=== PATIENT | female | born 1980 | race Caucasian/White ===

== ENCOUNTER 2018-06-08 19:41 | Observation (INO) | payer SELFPAY ==
--- NOTE | 2018-06-08 20:27 | EDM.PDOC ---
ED HPI GENERAL MEDICAL PROBLEM - General Chief Complaint: RN EMERGENCY ROOM Problem Stated Complaint: PT HAS HEAVY BLEEDING Time Seen by Provider: 06/08/18 19:48 Source of Information: Reports: Patient History Limitations: Reports: No Limitations - History of Present Illness INITIAL COMMENTS - FREE TEXT/NARRATIVE: HISTORY AND PHYSICAL: History of present illness: Patient is a 37-year-old female who presents to the ED today with concern of 5 week history of continuous vaginal bleeding. Patient states over the past 2 weeks she has begun to pass large amounts of clots. Patient states she main appointment with [facility] in order to get this evaluated by her appointment is not until June. Patient states that over the past week she's begun to feel dizzy and lightheaded. Patient states when she bends over she feels like she is going to pass out. Patient denies fever, chills, chest pain, shortness of breath, or cough. Denies headache, neck stiff ness, change in vision, syncope. Denies nausea, vomiting, abdominal pain, diarrhea, constipation, or dysuria. Has not noted any blood in urine or stool. Patient has been eating and drinking appropriately. Patient denies any health history. Review of systems: As per history of present illness and below otherwise all systems reviewed and negative. Past medical history: As per history of present illness and as reviewed below otherwise noncontributory. Surgical history: As per history of present illness and as reviewed below otherwise noncontributory. Social history: See social history for further information Family history: As per history of present illness and as reviewed below otherwise noncontributory. Physical exam: General: Patient is alert, oriented, and in no acute distress. Patient sitting comfortably on exam table. HEENT: Atraumatic, normocephalic, pupils equal and reactive bilaterally, negative for conjunctival pallor or scleral icterus, mucous membranes moist, TMs normal bilaterally, throat clear, neck supple, nontender, trachea midline. No drooling or trismus noted. No meningeal signs. No hot potato voice noted. Lungs: Clear to auscultation, breath sounds equal bilaterally, chest nontender. Heart: S1S2, regular rate and rhythm without overt murmur Abdomen: Soft, nondistended, nontender. Negative for masses or hepatosplenomegaly. Negative for costovertebral tenderness. Pelvis: Stable nontender. Genitourinary: External genitalia grossly unremarkable. There is a moderate amount of bright red blood in the vaginal vault. There is a blood clot in the cervical os but the os is closed. Negative cervical motion tenderness. Rectal: Deferred. Skin: Intact, warm, dry. No lesions or rashes noted. Extremities: Atraumatic, negative for cords or calf pain. Neurovascular unremarkable. Neuro: Awake, alert, oriented. Cranial nerves II through XII unremarkable. Cerebellum unremarkable. Motor and sensory unremarkable throughout. Exam nonfocal. Notes: Dr. Levine was verbally involved in patients care. Dr. Estrada was consult on patient and will admit to observation. Voices understanding and is agreeable to plan of care. Denies any further questions or concerns at this time. Diagnostics: CBC, CMP, UA, blood type, type and cross, type and screen, transvaginal ultrasound, hCG Quant, gonorrhea and Chlamydia, affirm Therapeutics: Saline, Blood transfusion Impression: Symptomatic anemia Dysfunctional uterine bleeding Bacterial Vaginosis Plan: 1. Admit to observation to Dr. Estrada Definitive disposition and diagnosis as appropriate pending reevaluation and review of above. abdomen Pain Score (Numeric/FACES): 2 - Related Data Allergies Allergy/AdvReac Type Severity Reaction Status Date / Time No Known Allergies Allergy Verified 06/08/18 19:47 Home Meds: Home Meds . [No Known Home Meds] 06/08/18 [History] Past Medical History - Past Health History Medical/Surgical History: Denies Medical/Surgical History Social & Family History - Family History Family Medical History: Noncontributory - Tobacco Use Smoking Status *Q: Current Every Day Smoker Years of Tobacco use: 20 Packs/Tins Daily: 0.5 - Caffeine Use Caffeine Use: Reports: Coffee, Energy Drinks, Soda, Tea - Recreational Drug Use Recreational Drug Use: No ED ROS GENERAL - Review of Systems Review Of Systems: ROS reveals no pertinent complaints other than HPI. ED EXAM, GENERAL - Physical Exam Exam: See Below (See dictation) Course - Vital Signs Last Recorded V/S: Last Vital Signs Temp 36.3 C 06/08/18 19:47 Pulse 96 06/08/18 21:30 Resp 18 06/08/18 21:30 BP 119/54 L 06/08/18 21:30 Pulse Ox 100 06/08/18 21:30 - Orders/Labs/Meds Orders: Active Orders 24 hr Category Date Time Status Admission Status [Patient Status] [ADT] Stat ADT 06/08/18 21:32 Active Verify Patient Consent Obtain [RC] ASDIRECTED Care 06/08/18 21:40 Active Transvaginal Non OB [US] Stat Exams 06/08/18 20:17 Taken CHLAMYDIA AND GONORRHEA BY TMA Stat Lab 06/08/18 20:40 Received RED BLOOD CELLS LP [BBK] Stat Lab 06/08/18 20:21 Received TYPE AND SCREEN [BBK] Stat Lab 06/08/18 20:21 Received Sodium Chloride 0.9% [Normal Saline] 1,000 ml Med 06/08/18 21:36 Active IV STAT Transfuse Red Blood Cells [COMM] Stat Oth 06/08/18 21:27 Ordered Medication Orders Sodium Chloride (Normal Saline) 1,000 mls @ 999 mls/hr IV STAT ONE Stop: 06/08/18 22:36 Labs: Laboratory Tests 06/08/18 06/08/18 06/08/18 Range/Units 19:25 20:21 20:21 WBC 5.54 (4.0-11.0) K/uL RBC 2.36 L (4.30-5.90) M/uL Hgb 7.3 L (12.0-16.0) g/dL Hct 23.1 L (36.0-46.0) % MCV 97.9 (80.0-98.0) fL MCH 30.9 (27.0-32.0) pg MCHC 31.6 (31.0-37.0) g/dL RDW Std Deviation 52.1 (28.0-62.0) fl RDW Coeff of Ivan 15 (11.0-15.0) % Plt Count 256 (150-400) K/uL MPV 9.90 (7.40-12.00) fL Neut % (Auto) 54.6 (48.0-80.0) % Lymph % (Auto) 35.6 (16.0-40.0) % [place] % (Auto) 5.8 (0.0-15.0) % Eos % (Auto) 3.8 (0.0-7.0) % Baso % (Auto) 0.2 (0.0-1.5) % Neut # (Auto) 3.0 (1.4-5.7) K/uL Lymph # (Auto) 2.0 (0.6-2.4) K/uL [place] # (Auto) 0.3 (0.0-0.8) K/uL Eos # (Auto) 0.2 (0.0-0.7) K/uL Baso # (Auto) 0.0 (0.0-0.1) K/uL Nucleated RBC % 0.0 /100WBC Nucleated RBCs # 0 K/uL HCG, Quant < 1.0 mIU/mL Urine Color ORANGE Urine Appearance CLOUDY Urine pH 7.0 (5.0-8.0) Ur Specific [place] 1.015 (1.001-1.035) Urine Protein 100 H (NEGATIVE) mg/dL Urine Glucose (UA) NEGATIVE (NEGATIVE) mg/dL Urine Ketones NEGATIVE (NEGATIVE) mg/dL Urine Occult Blood LARGE H (NEGATIVE) Urine Nitrite NEGATIVE (NEGATIVE) Urine Bilirubin NEGATIVE (NEGATIVE) Urine Urobilinogen 2.0 H (<2.0) EU/dL Ur Leukocyte Esterase NEGATIVE (NEGATIVE) Urine RBC TOO NUMEROUS TO CT H (0-2/HPF) Urine WBC 0-2 (0-5/HPF) Ur Epithelial Cells FEW (NONE-FEW) Urine Bacteria RARE (NEGATIVE) Urinalysis Comment Mimi species DNA (NEGATIVE) Gardnerella DNA Probe (NEGATIVE) Trichomonas DNA Probe (NEGATIVE) Blood Type 06/08/18 06/08/18 Range/Units 20:21 20:40 WBC (4.0-11.0) K/uL RBC (4.30-5.90) M/uL Hgb (12.0-16.0) g/dL Hct (36.0-46.0) % MCV (80.0-98.0) fL MCH (27.0-32.0) pg MCHC (31.0-37.0) g/dL RDW Std Deviation (28.0-62.0) fl RDW Coeff of Ivan (11.0-15.0) % Plt Count (150-400) K/uL MPV (7.40-12.00) fL Neut % (Auto) (48.0-80.0) % Lymph % (Auto) (16.0-40.0) % [place] % (Auto) (0.0-15.0) % Eos % (Auto) (0.0-7.0) % Baso % (Auto) (0.0-1.5) % Neut # (Auto) (1.4-5.7) K/uL Lymph # (Auto) (0.6-2.4) K/uL [place] # (Auto) (0.0-0.8) K/uL Eos # (Auto) (0.0-0.7) K/uL Baso # (Auto) (0.0-0.1) K/uL Nucleated RBC % /100WBC Nucleated RBCs # K/uL HCG, Quant mIU/mL Urine Color Urine Appearance Urine pH (5.0-8.0) Ur Specific [place] (1.001-1.035) Urine Protein (NEGATIVE) mg/dL Urine Glucose (UA) (NEGATIVE) mg/dL Urine Ketones (NEGATIVE) mg/dL Urine Occult Blood (NEGATIVE) Urine Nitrite (NEGATIVE) Urine Bilirubin (NEGATIVE) Urine Urobilinogen (<2.0) EU/dL Ur Leukocyte Esterase (NEGATIVE) Urine RBC (0-2/HPF) Urine WBC (0-5/HPF) Ur Epithelial Cells (NONE-FEW) Urine Bacteria (NEGATIVE) Urinalysis Comment Mimi species DNA NEGATIVE (NEGATIVE) Gard[place]rella DNA Probe POSITIVE H (NEGATIVE) Trichomonas DNA Probe NEGATIVE (NEGATIVE) Blood Type O POSITIVE Meds: Medications Generic Name Dose Route Start Last Admin Trade Name Freq PRN Reason Stop Dose Admin Sodium Chloride 1,000 mls @ 999 mls/hr 06/08/18 21:36 Normal Saline IV 06/08/18 22:36 STAT ONE Departure - Departure Time of Disposition: 21:57 Disposition: Refer to Observation Clinical Impression: Symptomatic anemia, Dysfunctional uterine bleeding, Bacterial vaginosis - Discharge Information Referrals: PCP,None [Primary Care Provider] - Forms: ED Department Discharge - My Orders Last 24 Hours: My Active Orders 06/08/18 20:17 Transvaginal Non OB [US] Stat 06/08/18 20:21 RED BLOOD CELLS LP [BBK] Stat TYPE AND SCREEN [BBK] Stat 06/08/18 20:40 CHLAMYDIA AND GONORRHEA BY TMA Stat 06/08/18 21:27 Transfuse Red Blood Cells [COMM] Stat 06/08/18 21:32 Admission Status [Patient Status] [ADT] Stat 06/08/18 21:36 Sodium Chloride 0.9% [Normal Saline] 1,000 ml IV STAT 06/08/18 21:40 Verify Patient Consent Obtain [RC] ASDIRECTED - Assessment/Plan Last 24 Hours: My Active Orders 06/08/18 20:17 Transvaginal Non OB [US] Stat 06/08/18 20:21 RED BLOOD CELLS LP [BBK] Stat TYPE AND SCREEN [BBK] Stat 06/08/18 20:40 CHLAMYDIA AND GONORRHEA BY TMA Stat 06/08/18 21:27 Transfuse Red Blood Cells [COMM] Stat 06/08/18 21:32 Admission Status [Patient Status] [ADT] Stat 06/08/18 21:36 Sodium Chloride 0.9% [Normal Saline] 1,000 ml IV STAT 06/08/18 21:40 Verify Patient Consent Obtain [RC] ASDIRECTED
[2018-06-08] MEDS ORDERED: Sodium Chloride 0.9% 1,000 ML IV ONE (21:36)
[2018-06-08] MEDS ORDERED: metroNIDAZOLE 250 MG Tab PO ONE (21:58)
[2018-06-08] MEDS ORDERED: Acetaminophen 325 MG Tab PO PRN (22:18)
[2018-06-08] MEDS ORDERED: Ondansetron 4 MG Tab PO PRN (22:19)
[2018-06-08] MEDS ORDERED: oxyCODONE 5 MG Tab PO PRN (22:19)
[2018-06-08] MEDS ORDERED: Sodium Chloride 0.9% 2.5 ML Syringe FLUSH PRN (22:20)
[2018-06-08] MEDS ORDERED: Sodium Chloride 0.9% 10 ML Syringe FLUSH PRN (22:20)
--- NOTE | 2018-06-08 22:33 | US ---
INDICATION: Vaginal bleeding. Bleeding with clots for 5 weeks. TECHNIQUE: Ultrasound pelvis transabdominal and transvaginal for better assessment or to better visualize the endometrium. Real-time sonographic images with spectral and color Doppler imaging of the ovaries were obtained. COMPARISON: No comparison pelvic ultrasound. FINDINGS: Uterus: 10.6 x 7.0 x 8.1 cm. Estimated uterine volume 316 mL. Fibroid uterus. Largest uterine fibroid measures 5.0 cm. Smaller uterine fibroid measures 1.5 cm, located between the endometrium and dominant right fundal intramural fibroid. Endometrium: Transvaginal imaging was performed to better evaluate the endometrium. 18 mm in thickness. Endometrium poorly delineated due to mass effect from large uterine fibroid. Right ovary: Right ovary not identified. Left ovary: Is 2.0 x 1.6 x 2.6 cm. No ovarian or adnexal masses. Normal arterial and venous blood flow. Cul-de-sac: No significant free fluid. Indeterminate fluid or possible cystic focus in the right adnexa, measuring 2.4 x 2.7 by 4.5 cm. IMPRESSION: 1. Heterogeneous uterus with at least 2 uterine fibroids identified near the right uterine fundus. Dominant anterior fundal intramural uterine fibroid measures 5.0 cm in maximal dimension with smaller fibroid 1.5 cm. 2. Indeterminate cystic focus in the right adnexa with nonvisualization of right ovary. Differential includes possible peritoneal inclusion cyst or a right hydrosalpinx. 3. Normal left ovary. 4. Endometrial thickness borderline thickened, measuring 18 mm. Endometrium poorly delineated due to mass effect from the adjacent uterine fibroids. Non-emergent pelvic MRI may be helpful for characterization of uterine fibroids, endometrium, and right adnexal cystic focus. Dictated by Claude Hernandez MD @ 06/08/2018 10:31:51 PM Dictated by: Claude Hernandez MD @ 06/08/2018 22:32:04 (Electronically Signed)
[2018-06-08] MEDS: Nicotine 14 MG/24 Hr Patch TRDERM SCH (22:57)
--- NOTE | 2018-06-09 07:28 | PCM.HP ---
H&P History of Present Illness - General Date of Service: 06/09/18 Admit Problem/Dx: Admission Diagnosis/Problem Admission Diagnosis/Problem Anemia, dysfunctional uterine bleeding, large fibroids Source of Information: Patient History Limitations: Reports: No Limitations - History of Present Illness Initial Comments - Free Text/Narative: The patient is a 37-year-old lady who had presented to the emergency department with a complaint of dizziness, lightheadedness and heavy vaginal bleeding. The patient is not . Patient reports that she has had very heavy menstrual cycle with clots. Patient also reports that she has been having to use up to 2 pads per hour. She says that she has had her menstrual cycle for approximately 5 weeks. She also has severe lower abdominal cramps. The patient has been in good health otherwise and she does not take any medication chronically other than supplements. She does not use control. Onset of Symptoms: Reports: Gradual Duration of Symptoms: Reports: Week(s): Location: Reports: Generalized Severity: Mild Improves with: Reports: None Worsens with: Reports: None Context: Reports: Other (Metromenorrhagia) Associated Symptoms: Reports: No Other Symptoms abdomen Pain Score (Numeric/FACES): 2 - Related Data Allergies/Adverse Reactions: Allergies Allergy/AdvReac Type Severity Reaction Status Date / Time No Known Allergies Allergy Verified 06/08/18 19:47 Home Medications: Home Meds . [No Known Home Meds] 06/08/18 [History] Past Medical History - Past Health History Medical/Surgical History: Denies Medical/Surgical History HEENT History: Reports: None Cardiovascular History: Reports: None Respiratory History: Reports: None Gastrointestinal History: Reports: None Genitourinary History: Reports: None [facility] History: Reports: Dysfunctional Uterine Bleeding, Fibroids Musculoskeletal History: Reports: None Neurological History: Reports: None Psychiatric History: Reports: None Endocrine/Metabolic History: Reports: None Hematologic History: Reports: None Immunologic History: Reports: None Oncologic (Cancer) History: Reports: None Dermatologic History: Reports: None - Infectious Disease History Infectious Disease History: Reports: None Social & Family History - Family History Family Medical History: Noncontributory - Tobacco Use Smoking Status *Q: Current Every Day Smoker Years of Tobacco use: 20 Packs/Tins Daily: 0.5 Used Tobacco, but Quit: No Second Hand Smoke Exposure: Yes - Caffeine Use Caffeine Use: Reports: Coffee - Alcohol Use Alcohol Use History: Yes Alcohol Use Frequency: Rarely, Not Used in Over 6 Months - Recreational Drug Use Recreational Drug Use: No - Living Situation & Occupation Living situation: Reports: , with Family Occupation: Employed H&P Review of Systems - Review of Systems: Review Of Systems: See Below General: Reports: Weakness, Fatigue HEENT: Reports: No Symptoms Pulmonary: Reports: No Symptoms Cardiovascular: Reports: No Symptoms Gastrointestinal: Reports: No Symptoms Genitourinary: Reports: Abnormal Menses, Dysmenorrhea Musculoskeletal: Reports: No Symptoms Skin: Reports: No Symptoms Psychiatric: Reports: No Symptoms Neurological: Reports: Dizziness Hematologic/Lymphatic: Reports: No Symptoms Immunologic: Reports: No Symptoms Exam - Exam Exam: See Below - Vital Signs Vital Signs: Last Vital Signs Temp 36.4 C 06/09/18 03:00 Pulse 101 H 06/09/18 03:00 Resp 16 06/09/18 03:00 BP 99/55 L 06/09/18 03:00 Pulse Ox 99 06/09/18 03:00 Weight: 64.773 kg - Exam Quality Assessment: Supplemental Oxygen General: Alert, Oriented, 4 HEENT: Conjunctiva Clear, EACs Clear, EOMI, Hearing Intact, Mucosa Moist & [place] , Nares Patent, PERRLA Neck: Supple, Trachea Midline, 2 Lungs: Clear to Auscultation, Normal Respiratory Effort Cardiovascular: Regular Rate, Regular Rhythm GI/Abdominal Exam: Normal Bowel Sounds, Soft, Non-Tender, No Distention (Female) Exam: Deferred Rectal (Female) Exam: Deferred Back Exam: Normal Inspection, Full Range of Motion, NT Extremities: Normal Inspection, Normal Range of Motion, Non-Tender, No Pedal Edema Skin: Warm, Dry, Intact Neurological: Cranial Nerves Intact Neuro Extensive - Mental Status: Alert, Oriented x3, Normal Mood/Affect Neuro Extensive - Motor, Sensory, Reflexes: CN II-XII Intact, Normal Gait Psychiatric: Alert, Normal Affect, Normal Mood - Patient Data Lab Results Last 24 hrs: Laboratory Results - last 24 hr 06/08/18 06/08/18 06/08/18 Range/Units 19:25 20:21 20:21 WBC 5.54 (4.0-11.0) K/uL RBC 2.36 L (4.30-5.90) M/uL Hgb 7.3 L (12.0-16.0) g/dL Hct 23.1 L (36.0-46.0) % MCV 97.9 (80.0-98.0) fL MCH 30.9 (27.0-32.0) pg MCHC 31.6 (31.0-37.0) g/dL RDW Std Deviation 52.1 (28.0-62.0) fl RDW Coeff of Ivan 15 (11.0-15.0) % Plt Count 256 (150-400) K/uL MPV 9.90 (7.40-12.00) fL Neut % (Auto) 54.6 (48.0-80.0) % Lymph % (Auto) 35.6 (16.0-40.0) % [place] % (Auto) 5.8 (0.0-15.0) % Eos % (Auto) 3.8 (0.0-7.0) % Baso % (Auto) 0.2 (0.0-1.5) % Neut # (Auto) 3.0 (1.4-5.7) K/uL Lymph # (Auto) 2.0 (0.6-2.4) K/uL [place] # (Auto) 0.3 (0.0-0.8) K/uL Eos # (Auto) 0.2 (0.0-0.7) K/uL Baso # (Auto) 0.0 (0.0-0.1) K/uL Nucleated RBC % 0.0 /100WBC Nucleated RBCs # 0 K/uL Iron (50-175) ug/dL TIBC (250-450) ug/dL % Saturation (20-55) % Ferritin (8-252) ng/mL HCG, Quant < 1.0 mIU/mL Urine Color ORANGE Urine Appearance CLOUDY Urine pH 7.0 (5.0-8.0) Ur Specific [place] 1.015 (1.001-1.035) Urine Protein 100 H (NEGATIVE) mg/dL Urine Glucose (UA) NEGATIVE (NEGATIVE) mg/dL Urine Ketones NEGATIVE (NEGATIVE) mg/dL Urine Occult Blood LARGE H (NEGATIVE) Urine Nitrite NEGATIVE (NEGATIVE) Urine Bilirubin NEGATIVE (NEGATIVE) Urine Urobilinogen 2.0 H (<2.0) EU/dL Ur Leukocyte Esterase NEGATIVE (NEGATIVE) Urine RBC TOO NUMEROUS TO CT H (0-2/HPF) Urine WBC 0-2 (0-5/HPF) Ur Epithelial Cells FEW (NONE-FEW) Urine Bacteria RARE (NEGATIVE) Urinalysis Comment Mimi species DNA (NEGATIVE) Gardnerella DNA Probe (NEGATIVE) Trichomonas DNA Probe (NEGATIVE) Blood Type Antibody Screen Crossmatch 06/08/18 06/08/18 06/08/18 Range/Units 20:21 20:21 20:21 WBC (4.0-11.0) K/uL RBC (4.30-5.90) M/uL Hgb (12.0-16.0) g/dL Hct (36.0-46.0) % MCV (80.0-98.0) fL MCH (27.0-32.0) pg MCHC (31.0-37.0) g/dL RDW Std Deviation (28.0-62.0) fl RDW Coeff of Ivan (11.0-15.0) % Plt Count (150-400) K/uL MPV (7.40-12.00) fL Neut % (Auto) (48.0-80.0) % Lymph % (Auto) (16.0-40.0) % [place] % (Auto) (0.0-15.0) % Eos % (Auto) (0.0-7.0) % Baso % (Auto) (0.0-1.5) % Neut # (Auto) (1.4-5.7) K/uL Lymph # (Auto) (0.6-2.4) K/uL [place] # (Auto) (0.0-0.8) K/uL Eos # (Auto) (0.0-0.7) K/uL Baso # (Auto) (0.0-0.1) K/uL Nucleated RBC % /100WBC Nucleated RBCs # K/uL Iron 101 (50-175) ug/dL TIBC 298 (250-450) ug/dL % Saturation 33.89 (20-55) % Ferritin 32 (8-252) ng/mL HCG, Quant mIU/mL Urine Color Urine Appearance Urine pH (5.0-8.0) Ur Specific [place] (1.001-1.035) Urine Protein (NEGATIVE) mg/dL Urine Glucose (UA) (NEGATIVE) mg/dL Urine Ketones (NEGATIVE) mg/dL Urine Occult Blood (NEGATIVE) Urine Nitrite (NEGATIVE) Urine Bilirubin (NEGATIVE) Urine Urobilinogen (<2.0) EU/dL Ur Leukocyte Esterase (NEGATIVE) Urine RBC (0-2/HPF) Urine WBC (0-5/HPF) Ur Epithelial Cells (NONE-FEW) Urine Bacteria (NEGATIVE) Urinalysis Comment Mimi species DNA (NEGATIVE) [place] DNA Probe (NEGATIVE) Trichomonas DNA Probe (NEGATIVE) Blood Type Cancelled O POSITIVE Antibody Screen NEGATIVE Crossmatch See Detail 06/08/18 Range/Units 20:40 WBC (4.0-11.0) K/uL RBC (4.30-5.90) M/uL Hgb (12.0-16.0) g/dL Hct (36.0-46.0) % MCV (80.0-98.0) fL MCH (27.0-32.0) pg MCHC (31.0-37.0) g/dL RDW Std Deviation (28.0-62.0) fl RDW Coeff of Ivan (11.0-15.0) % Plt Count (150-400) K/uL MPV (7.40-12.00) fL Neut % (Auto) (48.0-80.0) % Lymph % (Auto) (16.0-40.0) % [place] % (Auto) (0.0-15.0) % Eos % (Auto) (0.0-7.0) % Baso % (Auto) (0.0-1.5) % Neut # (Auto) (1.4-5.7) K/uL Lymph # (Auto) (0.6-2.4) K/uL [place] # (Auto) (0.0-0.8) K/uL Eos # (Auto) (0.0-0.7) K/uL Baso # (Auto) (0.0-0.1) K/uL Nucleated RBC % /100WBC Nucleated RBCs # K/uL Iron (50-175) ug/dL TIBC (250-450) ug/dL % Saturation (20-55) % Ferritin (8-252) ng/mL HCG, Quant mIU/mL Urine Color Urine Appearance Urine pH (5.0-8.0) Ur Specific [place] (1.001-1.035) Urine Protein (NEGATIVE) mg/dL Urine Glucose (UA) (NEGATIVE) mg/dL Urine Ketones (NEGATIVE) mg/dL Urine Occult Blood (NEGATIVE) Urine Nitrite (NEGATIVE) Urine Bilirubin (NEGATIVE) Urine Urobilinogen (<2.0) EU/dL Ur Leukocyte Esterase (NEGATIVE) Urine RBC (0-2/HPF) Urine WBC (0-5/HPF) Ur Epithelial Cells (NONE-FEW) Urine Bacteria (NEGATIVE) Urinalysis Comment Mimi species DNA NEGATIVE (NEGATIVE) [place] DNA Probe POSITIVE H (NEGATIVE) Trichomonas DNA Probe NEGATIVE (NEGATIVE) Blood Type Antibody Screen Crossmatch Result Diagrams: 06/08/18 20:21 *Q Meaningful Use (ADM) - VTE *Q VTE Pharmacological Contraindications *Q: Risk of Bleeding - Problem List (1) Symptomatic anemia SNOMED Code(s): 437887760 ICD Code: D64.9 - ANEMIA, UNSPECIFIED Status: Chronic Priority: High Current Visit: Yes (2) Dysfunctional uterine bleeding SNOMED Code(s): 38808819 ICD Code: N93.8 - OTHER SPECIFIED ABNORMAL UTERINE AND VAGINAL BLEEDING Status: Acute Priority: High Current Visit: Yes (3) Uterine fibroid SNOMED Code(s): 17012396 ICD Code: D25.9 - LEIOMYOMA OF UTERUS, UNSPECIFIED Status: Acute Priority : High Current Visit: Yes Qualifiers: Uterine leiomyoma location: intramural Qualified Code(s): D25.1 - Intramural leiomyoma of uterus (4) Tobacco abuse SNOMED Code(s): 013175831 ICD Code: Z72.0 - TOBACCO USE Status: Chronic Priority: Medium Current Visit: Yes Problem List Initiated/Reviewed/Updated: Yes Orders Last 24hrs: Active Orders 24 hr Category Date Time Status Admission Status [Patient Status] [ADT] Stat ADT 06/08/18 21:32 Active Antiembolic Devices [RC] PER UNIT ROUTINE Care 06/09/18 06:57 Active Communication Order [RC] PRN Care 06/09/18 01:54 Active Notify Provider Consults [RC] ASDIRECTED Care 06/09/18 06:57 Active Oxygen Therapy [RC] PRN Care 06/09/18 06:55 Active Up ad Mamta [RC] ASDIRECTED Care 06/09/18 06:55 Active VTE/DVT Education [RC] PER UNIT ROUTINE Care 06/09/18 06:55 Active Verify Patient Consent Obtain [RC] ASDIRECTED Care 06/08/18 21:40 Active Vital Signs [RC] Q4H Care 06/09/18 06:55 Active Consult to Physician [CONS] Routine Cons 06/09/18 06:55 Active Regular Diet [DIET] Diet 06/09/18 Breakfast Active BASIC METABOLIC PANEL,BMP [CHEM] AM Lab 06/10/18 05:11 Ordered CBC WITH AUTO DIFF [HEME] AM Lab 06/10/18 05:11 Ordered CHLAMYDIA AND GONORRHEA BY TMA Stat Lab 06/08/18 20:40 Received RED BLOOD CELLS LP [BBK] Stat Lab 06/08/18 20:21 Results TYPE AND SCREEN [BBK] Stat Lab 06/08/18 20:21 Results Acetaminophen [Tylenol] Med 06/08/18 22:18 Active 650 mg PO Q4H PRN Nicotine [Habitrol] Med 06/08/18 23:00 Active 14 mg TRDERM DAILY Ondansetron [Zofran] Med 06/08/18 22:19 Active 4 mg PO Q6H PRN Sodium Chloride 0.9% [Saline Flush] Med 06/08/18 22:20 Active 10 ml FLUSH ASDIRECTED PRN Sodium Chloride 0.9% [Saline Flush] Med 06/08/18 22:20 Active 2.5 ml FLUSH ASDIRECTED PRN oxyCODONE Med 06/08/18 22:19 Active 5 mg PO Q4H PRN Convert IV to Saline Lock [OM.PC] Stat Oth 06/08/18 22:20 Ordered Sequential Compression Device [OM.PC] Per Unit Routine Oth 06/09/18 06:56 Ordered Transfuse Red Blood Cells [COMM] Stat Oth 06/08/18 21:27 Ordered VTE Pharmacological Contraindications [AST] Per Unit Oth 06/09/18 06:55 Ordered Routine Resuscitation Status Routine Resus Stat 06/09/18 06:55 Ordered Medication Orders Acetaminophen (Tylenol) 650 mg PO Q4H PRN PRN Reason: Pain (mild 1-3) Nicotine (Habitrol) 14 mg TRDERM DAILY SUSIE Last Admin: 06/08/18 22:57 Dose: 14 mg Ondansetron HCl (Zofran) 4 mg PO Q6H PRN PRN Reason: Nausea/Vomiting Oxycodone HCl (Oxycodone) 5 mg PO Q4H PRN PRN Reason: Pain (moderate 4-6) Sodium Chloride (Saline Flush) 10 ml FLUSH ASDIRECTED PRN PRN Reason: Keep Vein Open Sodium Chloride (Saline Flush) 2.5 ml FLUSH ASDIRECTED PRN PRN Reason: Keep Vein Open Assessment/Plan Comment:: The patient is an otherwise healthy 37-year-old lady who was admitted primarily secondary to anemia due to dysfunctional uterine bleeding. [facility] [employer] physician, Dr. Oneill, was consulted and had recommended follow-up in 1 month as an outpatient with him. He had also recommended that the patient have Ortho Tri- Cyclen control pills to help with her uterine bleeding. The patient had been transfused one unit of packed red blood cells. Current CBC is pending. The patient will also have DVT prophylaxis with the use of SCDs. The patient will have her regular diet as tolerated. She is also been encouraged to ambulate. The patient should be appropriate for discharge later today.
[2018-06-09] MEDS: Nicotine 14 MG/24 Hr Patch TRDERM SCH (10:10)
--- NOTE | 2018-06-10 05:10 | CONS ---
DATE OF CONSULTATION: DATE OF : 1980 PRIMARY CARE PHYSICIAN: None PCP REFERRING PHYSICIAN: Sammy Estrada DO For the purpose of this consultation, I had [id number] interview and brief physical examination of this patient and I also reviewed her lab work and I also reviewed her admission note and her pelvic ultrasound. BRIEF HISTORY: She is 37 years old. She is para 2-0-0-2, one is delivered by vaginal , one is by section. She has increasing menometrorrhagia for the last year or so until it is her last period. It lasted for 5 weeks. The patient was seen in the emergency room and diagnosed to be having excessive vaginal bleeding with anemia. She was admitted to the hospital and she was managed by the hospitalist and she required a blood transfusion. She has no past medical illness. She is status post one section and one vaginal . She does not take any medication on a regular basis and she is not using any method of control. PHYSICAL EXAMINATION: On brief abdominal examination, it shows that the uterus could be felt very easily above the symphysis pubis and it was felt to be about 15 to 16-week size with a possibility of leiomyoma. The patient stated that she had a pelvic exam in the emergency room and she declined a pelvic examination now. ASSESSMENT: Based on the ultrasound and history and brief abdominal examination, she has a large uterus with multiple fibroids, which is most likely the cause of her bleeding. The patient is 37. She prefers that she finished with her family. My recommendation for her to have a hysterectomy to stop the bleeding and it most likely could be done laparoscopically. I discussed that with her in detail. The patient elected to have a conservative management rather than a surgical treatment. I told the patient her alternative is to have to be on control pills and we will ask the hospitalist doctor to prescribe the control pills for her and she could have a followup examination in the office in 1 to 2 weeks for followup on her blood count and her bleeding issue. I discussed this consultation with Dr. Estrada. Thank you for consulting us. JABARI VILLAR /[id number]
== END 2018-06-09 12:00 | disposition home or self-care (01) ==
LOC: MW.ED 19:41 → MW.MS 21:32 → MW.ED 22:25
PROVIDERS: ADMIT Internal Medicine; ATTEND Internal Medicine
DX: D25.1 Intramural leiomyoma of uterus (principal); D64.9 Anemia, unspecified; N93.8 Other specified abnormal uterine and vaginal bleeding; F17.200 Nicotine dependence, unspecified, uncomplicated
CPT/HCPCS: 36415; 76830; 81001; 82728; 83550; 84702; 85025; 87480; 87491; 87510; 87591; 87660; 99285; A9270; J7040; P9016; 99284

== ENCOUNTER 2018-07-05 09:09 | Emergency (ER) | payer BC ==
[2018-07-05] MEDS ORDERED: Ketorolac 60 MG/2 ML SDV IM ONE (09:25)
--- NOTE | 2018-07-05 09:31 | EDM.PDOC ---
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 Stated Complaint: VAGINAL BLEEDING Time Seen by Provider: 07/05/18 09:30 Source of Information: Reports: Patient - History of Present Illness INITIAL COMMENTS - FREE TEXT/NARRATIVE: HISTORY AND PHYSICAL: History of present illness: [Patient with history of uterine fibroids followed by gynecology hysterectomy was suggested however patient declined alternatively was placed on control help regulate bleeding she's had met heavy menstrual flow over the last 2-4 days No fever nausea vomiting chills sweats no chest pain shortness breath headache dizziness palpitation no bowel or urine symptoms ] Review of systems: As per history of present illness and below otherwise all systems reviewed and negative. Past medical history: As per history of present illness and as reviewed below otherwise noncontributory. Surgical history: As per history of present illness and as reviewed below otherwise noncontributory. Social history: No reported history of drug or alcohol abuse. Family history: As per history of present illness and as reviewed below otherwise noncontributory. Physical exam: HEENT: Atraumatic, normocephalic, pupils reactive, negative for conjunctival pallor or scleral icterus, mucous membranes moist, throat clear, neck supple, nontender, trachea midline. Lungs: Clear to auscultation, breath sounds equal bilaterally, chest nontender. Heart: S1S2, regular, negative for clicks, rubs, or JVD. Abdomen: Soft, nondistended, nontender. Negative for masses or hepatosplenomegaly. Negative for costovertebral tenderness. Pelvis: Stable nontender. Genitourinary: Deferred. Rectal: Deferred. Extremities: Atraumatic, negative for cords or calf pain. Neurovascular unremarkable. Neuro: Awake, alert, oriented. Cranial nerves II through XII unremarkable. Cerebellum unremarkable. Motor and sensory unremarkable throughout. Exam nonfocal. Diagnostics: [CBC CMP UA hCG ] Therapeutics: [Continue BCP Follow-up with gynecology ] Discussed with Dr. song recommends follow-up patient has elected to follow-up with Dr. Oneill Impression: [History of uterine fibroid Heavy menses]/abnormal uterine bleeding Ultrasound evidence of hyperplasia Definitive disposition and diagnosis as appropriate pending reevaluation and review of above. 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 History: Reports: Dysfunctional Uterine Bleeding, Fibroids Musculoskeletal History: Reports: None Neurological History: Reports: None Psychiatric History: Reports: None Endocrine/Metabolic History: Reports: None Hematologic History: Reports: None Immunologic History: Reports: None Oncologic (Cancer) History: Reports: None Dermatologic History: Reports: None - Infectious Disease History Infectious Disease History: Reports: None - Past Surgical History Head Surgeries/Procedures: Reports: None Social & Family History - Family History Family Medical History: Noncontributory - Tobacco Use Smoking Status *Q: Current Every Day Smoker Years of Tobacco use: 25 Packs/Tins Daily: 0.5 - Caffeine Use Caffeine Use: Reports: Coffee - Recreational Drug Use Recreational Drug Use: No - Living Situation & Occupation Living situation: Reports: , with Family Occupation: Employed ED ROS GENERAL - Review of Systems Review Of Systems: See Below ED EXAM, GENERAL - Physical Exam Exam: See Below Course - Vital Signs Last Recorded V/S: Last Vital Signs Temp 96.9 F 07/05/18 09:17 Pulse 100 07/05/18 09:17 Resp 18 07/05/18 09:17 BP 117/63 07/05/18 09:17 Pulse Ox 100 07/05/18 09:17 - Orders/Labs/Meds Orders: Active Orders 24 hr Category Date Time Status EKG 12 Lead [EKG Documentation Completion] [RC] STAT Care 07/05/18 11:42 Active Labs: Laboratory Tests 07/05/18 07/05/18 07/05/18 Range/Units 09:30 09:30 09:41 WBC 11.43 H (4.0-11.0) K/uL RBC 4.38 (4.30-5.90) M/uL Hgb 13.1 (12.0-16.0) g/dL Hct 43.3 (36.0-46.0) % MCV 98.9 H (80.0-98.0) fL MCH 29.9 (27.0-32.0) pg MCHC 30.3 L (31.0-37.0) g/dL RDW Std Deviation 53.4 (28.0-62.0) fl RDW Coeff of Ivan 15 (11.0-15.0) % Plt Count 211 (150-400) K/uL MPV 10.90 (7.40-12.00) fL Neut % (Auto) 77.2 (48.0-80.0) % Lymph % (Auto) 15.3 L (16.0-40.0) % Shannon % (Auto) 5.9 (0.0-15.0) % Eos % (Auto) 1.4 (0.0-7.0) % Baso % (Auto) 0.2 (0.0-1.5) % Neut # (Auto) 8.8 H (1.4-5.7) K/uL Lymph # (Auto) 1.8 (0.6-2.4) K/uL Shannon # (Auto) 0.7 (0.0-0.8) K/uL Eos # (Auto) 0.2 (0.0-0.7) K/uL Baso # (Auto) 0.0 (0.0-0.1) K/uL Nucleated RBC % 0.0 /100WBC Nucleated RBCs # 0 K/uL Sodium (136-145) mmol/L Potassium (3.5-5.1) mmol/L Chloride (98-107) mmol/L Carbon Dioxide (21.0-32.0) mmol/L BUN (7.0-18.0) mg/dL Creatinine (0.6-1.0) mg/dL Est Cr Clr Drug Dosing mL/min Estimated GFR (MDRD) ml/min Glucose (74-106) mg/dL Calcium (8.5-10.1) mg/dL Total Bilirubin (0.2-1.0) mg/dL AST (15-37) IU/L ALT (14-63) IU/L Alkaline Phosphatase (46-116) U/L Total Protein (6.4-8.2) g/dL Albumin (3.4-5.0) g/dL Globulin (2.6-4.0) g/dL Albumin/Globulin Ratio (0.9-1.6) Urine Color YELLOW Urine Appearance CLEAR Urine pH 5.0 (5.0-8.0) Ur Specific [place] >= 1.030 (1.001-1.035) Urine Protein NEGATIVE (NEGATIVE) mg/dL Urine Glucose (UA) NEGATIVE (NEGATIVE) mg/dL Urine Ketones TRACE H (NEGATIVE) mg/dL Urine Occult Blood LARGE H (NEGATIVE) Urine Nitrite NEGATIVE (NEGATIVE) Urine Bilirubin SMALL H (NEGATIVE) Urine Urobilinogen 1.0 (<2.0) EU/dL Ur Leukocyte Esterase NEGATIVE (NEGATIVE) Urine RBC 8-10 (0-2/HPF) Urine WBC 1-3 (0-5/HPF) Ur Epithelial Cells OCCASIONAL (NONE-FEW) Amorphous Sediment FEW (NEGATIVE) Urine Bacteria FEW (NEGATIVE) Urine Mucus MODERATE (NONE-MOD) Urine HCG, Qual NEGATIVE (NEGATIVE) 07/05/18 Range/Units 09:41 WBC (4.0-11.0) K/uL RBC (4.30-5.90) M/uL Hgb (12.0-16.0) g/dL Hct (36.0-46.0) % MCV (80.0-98.0) fL MCH (27.0-32.0) pg MCHC (31.0-37.0) g/dL RDW Std Deviation (28.0-62.0) fl RDW Coeff of Ivan (11.0-15.0) % Plt Count (150-400) K/uL MPV (7.40-12.00) fL Neut % (Auto) (48.0-80.0) % Lymph % (Auto) (16.0-40.0) % Shannon % (Auto) (0.0-15.0) % Eos % (Auto) (0.0-7.0) % Baso % (Auto) (0.0-1.5) % Neut # (Auto) (1.4-5.7) K/uL Lymph # (Auto) (0.6-2.4) K/uL Shannon # (Auto) (0.0-0.8) K/uL Eos # (Auto) (0.0-0.7) K/uL Baso # (Auto) (0.0-0.1) K/uL Nucleated RBC % /100WBC Nucleated RBCs # K/uL Sodium 143 (136-145) mmol/L Potassium 4.1 (3.5-5.1) mmol/L Chloride 108 H (98-107) mmol/L Carbon Dioxide 26.6 (21.0-32.0) mmol/L BUN 10 (7.0-18.0) mg/dL Creatinine 0.7 (0.6-1.0) mg/dL Est Cr Clr Drug Dosing 85.34 mL/min Estimated GFR (MDRD) > 60.0 ml/min Glucose 97 (74-106) mg/dL Calcium 10.0 (8.5-10.1) mg/dL Total Bilirubin 0.3 (0.2-1.0) mg/dL AST 14 L (15-37) IU/L ALT 18 (14-63) IU/L Alkaline Phosphatase 85 (46-116) U/L Total Protein 7.5 (6.4-8.2) g/dL Albumin 3.5 (3.4-5.0) g/dL Globulin 4.0 (2.6-4.0) g/dL Albumin/Globulin Ratio 0.9 (0.9-1.6) Urine Color Urine Appearance Urine pH (5.0-8.0) Ur Specific [place] (1.001-1.035) Urine Protein (NEGATIVE) mg/dL Urine Glucose (UA) (NEGATIVE) mg/dL Urine Ketones (NEGATIVE) mg/dL Urine Occult Blood (NEGATIVE) Urine Nitrite (NEGATIVE) Urine Bilirubin (NEGATIVE) Urine Urobilinogen (<2.0) EU/dL Ur Leukocyte Esterase (NEGATIVE) Urine RBC (0-2/HPF) Urine WBC (0-5/HPF) Ur Epithelial Cells (NONE-FEW) Amorphous Sediment (NEGATIVE) Urine Bacteria (NEGATIVE) Urine Mucus (NONE-MOD) Urine HCG, Qual (NEGATIVE) Meds: Medications Discontinued Medications Generic Name Dose Route Start Last Admin Trade Name Freq PRN Reason Stop Dose Admin Iopamidol 75 ml 07/05/18 12:13 07/05/18 12:13 Isovue Multipack-370 (76%) IVPUSH 07/05/18 12:14 75 ml ONETIME STA Administration Ketorolac Tromethamine 60 mg 07/05/18 09:25 07/05/18 09:35 Toradol IM 07/05/18 09:26 60 mg ONETIME ONE Administration Departure - Departure Time of Disposition: 14:03 Disposition: Home, Self-Care 01 Condition: Good Clinical Impression: Endometrial hyperplasia, Dysfunctional uterine bleeding Uterine fibroid Qualifiers: Uterine leiomyoma location: intramural Qualified Code(s): D25.1 - Intramural leiomyoma of uterus - Discharge Information Referrals: PCP,Unknown [Primary Care Provider] - Forms: ED Department Discharge Additional Instructions: ER referral for Dr. Otero gynecology for Saturday or early in the week for consideration of endometrial biopsy and/or hysterectomy Continue current management Return to the emergency room if symptoms persist or worsen or if new concerning symptoms develop [facility] [address] [address] The following information is given to patients seen in the emergency department who are being discharged to home. This information is to outline your options for follow-up care. We provide all patients seen in our emergency department with a follow-up referral. The need for follow-up, as well as the timing and circumstances, are variable depending upon the specifics of your emergency department visit. If you don't have a primary care physician on staff, we will provide you with a referral. We always advise you to contact your personal physician following an emergency department visit to inform them of the circumstance of the visit and for follow-up with them and/or the need for any referrals to a consulting specialist. The emergency department will also refer you to a specialist when appropriate. This referral assures that you have the opportunity for follow-up care with a specialist. All of these measure are taken in an effort to provide you with optimal care, which includes your follow-up. Under all circumstances we always encourage you to contact your private physician who remains a resource for coordinating your care. When calling for follow-up care, please make the office aware that this follow-up is from your recent emergency room visit. If for any reason you are refused follow-up, please contact the [facility] emergency department at and asked to speak to the emergency department charge nurse. - My Orders Last 24 Hours: My Active Orders 07/05/18 11:42 EKG 12 Lead [EKG Documentation Completion] [RC] STAT - Assessment/Plan Last 24 Hours: My Active Orders 07/05/18 11:42 EKG 12 Lead [EKG Documentation Completion] [RC] STAT
[2018-07-05 10:20] LABS: CHLORIDE,CL 108 mmol/L (98-107); SODIUM,NA 143 mmol/L (136-145)
--- NOTE | 2018-07-05 11:15 | CT ---
INDICATION: Vaginal bleeding for a month. Fibroids. Patient had blood transfusion last month for vaginal bleeding. TECHNIQUE: CT of abdomen and pelvis performed without oral or IV contrast. COMPARISON: Pelvic ultrasound 06/08/2018. FINDINGS: Tiny stone in the left lower kidney. Metallic foreign body in the perineal region. Small uncalcified nodular opacity in the left lower lobe posteriorly measures 7-8 mm on image 3. Tiny subpleural nodule in the left lower lobe. Uncalcified nodule right lung base anteriorly in the right lower lobe posterior to the major fissure measures 6-7 mm. These bilateral pulmonary nodules are indeterminate and given the size of the largest of these it would be worthwhile obtaining a complete CT of the chest to ensure there are not additional pulmonary nodules. Mild atelectasis and ground-glass opacity in the lungs. The anterior mid and lower right breast has a large amount of very dense soft tissue opacity which may be related to prominent parenchymal change but is fairly nonspecific. Moderate increased low-density and the central uterus which is consistent with prominence of the endometrial stripe and thickening of the endometrial stripe. This is not accurately assessed on noncontrast CT but portions of the visualized endometrium could measure up to 1.9 cm. Suggest correlation with repeat pelvic ultrasound could more accurately assess endometrial stripe. Endometrial stripe did measures similarly on the prior ultrasound. The uterus is moderately enlarged and pelvis and contains a soft tissue mass measuring up to 6 cm posteriorly correlating with the largest fibroid described on the recent ultrasound. Cystic structure with calcification within in it posteriorly in the left lower pelvis in the left periaortic and uterine region could be an ovarian cyst or small amount of fluid in the pelvis. All the above findings would be better assessed with repeat pelvic ultrasound. The appendix is normal. Remainder negative. IMPRESSION: 1. Endometrial stripe appears prominent by CT but is not well visualized without IV contrast. Endometrial stripe could measure up to 1.9 cm in transverse dimension. Given the history of persistent vaginal bleeding, recommend repeat pelvic ultrasound to further evaluate. Endometrial stripe was similarly thickened on May 2018 ultrasound. 2. Moderately enlarged bulbous uterus consistent with myomatous change with at least 1 large fibroid seen posteriorly by CT today. 3. Fluid collection or cystic density in the left pelvis in the periuterine region could be an ovarian cystic lesion or small amount of free fluid. 4. Tiny stone left kidney. 5. Indeterminate sub centimeter bilateral uncalcified pulmonary nodules in the lung bases measure up to 7-8 mm. Given the size of the largest nodule would suggest complete CT of the chest to evaluate for etiology of these nodules and to assess for additional pulmonary nodules. The size of the largest nodule would also warrant follow-up CT in the future per Fleischner society guidelines. Please note that all CT scans at this facility use dose modulation, iterative reconstruction, and/or weight-based dosing when appropriate to reduce radiation dose to as low as reasonably achievable. Dictated by Donavan Eugene MD @ Jul 05 2018 11:02AM Signed by Dr. Donavan Eugene @ Jul 05 2018 11:14AM
[2018-07-05] MEDS ORDERED: Iopamidol 755 MG/ML 500 ML Multipack Bottle IVPUSH STA (12:13)
--- NOTE | 2018-07-05 13:30 | CT ---
INDICATION: Pulmonary nodules on CT earlier today. Vaginal bleeding for one month. TECHNIQUE: CT chest performed after IV injection of 75 mL of Isovue-370. COMPARISON: CT abdomen and pelvis today. FINDINGS: Mild ground-glass opacity/mosaic pattern in the lungs likely inflammatory. Multiple scattered bilateral pulmonary nodules. The largest of these measures 7-8 mm and is uncalcified in the left lower lobe and is unchanged from CT earlier today. Small nodule along the left major fissure on image 32 of series 202. Few additional small subpleural nodules in the left lower lobe. Two adjacent small uncalcified nodules are seen in the left upper lobe on image 23. Small nodule in the left upper lobe/lingula on image 36 measures 4-5 mm. 5 mm nodule in the right middle lobe on image 47. 6-7 mm nodule in the right lower lobe anteriorly along the major fissure on image [address] earlier today. 6 mm nodule in the right upper lobe posteromedially on image 27. Few additional small nodules in the right lung. All these nodules are indeterminate and uncalcified. Follow-up of these nodules should be based on [place] Society guidelines. The breasts are fairly dense. Increased number of small to mildly prominent lymph nodes in both axillary regions likely reactive in nature. Mild lymph node prominence in both hilar regions consistent with very mild adenopathy. Small to upper limits of normal lymph nodes in the mediastinum. Remainder negative. IMPRESSION: 1. Scattered multiple subcentimeter uncalcified indeterminate bilateral pulmonary nodules measuring up to 7-8 mm. Follow-up of these nodules is based on M[place]n Society guidelines. Please see table below. 2. Very mild bilateral hilar adenopathy likely inflammatory reactive in nature. 3. Mild mosaic pattern in the lungs likely inflammatory. Other findings as above. FLEISCHNER SOCIETY GUIDELINES SOLID NODULES: MULTIPLE LOW-RISK - nodule less than 6 mm: No routine follow-up. - nodule 6-8 mm: CT at 3-6 months, then consider CT at 18-24 months. - nodule greater than 8 mm: CT at 3-6 months, then consider CT at 18-24 months. MULTIPLE HIGH-RISK - nodule less than 6 mm: Optional CT at 12 months. - nodule 6-8 mm: CT at 3-6 months, then at 18-24 months. - nodule greater than 8 mm: CT at 3-6 months, then at 18-24 months. Please note that all CT scans at this facility use dose modulation, iterative reconstruction, and/or weight-based dosing when appropriate to reduce radiation dose to as low as reasonably achievable. Dictated by Donavan Eugene MD @ Jul 05 2018 1:09PM (Electronically Signed)
--- NOTE | 2018-07-05 13:45 | US ---
INDICATION: Dysfunctional uterine bleeding COMPARISON: Pelvic ultrasound dated 06/08/[address] abdomen dated 07/05/2018 TECHNIQUE: 2D rowell scale and color Doppler images were acquired of the pelvis using a transabdominal and transvaginal approach. FINDINGS: Sonographic imaging demonstrates a bulbous retroverted uterus. Uterus measures 11.3 by 8.5 x 9.2 cm in size. The endometrial lining is thickened measuring approximately 24 mm. There is a dominant posterior fundal fibroid with a heterogeneous hypoechoic echotexture. The fibroid is transmural in nature and distorts the upper endometrial lining. Fibroid measures 5 cm in size. Adjacent to this there is a 2nd smaller intramural fibroid with similar sonographic characteristics which measures 3.3 cm. Neither ovary was identified. There are no suspicious soft tissue masses are complex fluid collections within the cul-de-sac or adnexal regions. IMPRESSION: Abnormal endometrial thickening suggesting possible endometrial hyperplasia or carcinoma. Fibroid changes evident within the posterior fundus and upper uterine body. Dictated by Reynaldo Langford MD @ Jul 05 2018 1:35PM Signed by Dr. Reynaldo Langford @ Jul 05 2018 1:44PM
== END 2018-07-05 14:21 | disposition home or self-care (01) ==
LOC: MW.ED 09:09
DX: D25.1 Intramural leiomyoma of uterus (principal); N85.00 Endometrial hyperplasia, unspecified; F17.210 Nicotine dependence, cigarettes, uncomplicated
CPT/HCPCS: 36415; 71260; 74176; 76830; 80053; 81001; 81025; 85025; 93005; 96372; 99284; J1885; Q9967; 99283

== ENCOUNTER 2018-07-17 06:59 | Day surgery (SDC) | payer BC ==
[2018-07-17] MEDS ORDERED: fentaNYL 250 MCG/5 ML SDV ONE (07:11)
[2018-07-17] MEDS ORDERED: Glycopyrrolate 0.2 MG/ML SDV ONE (07:11)
[2018-07-17] MEDS ORDERED: Midazolam 1 MG/ML 2 ML SDV ONE (07:11)
[2018-07-17] MEDS ORDERED: Neostigmine Methylsulfate 1 MG/ML 5 ML Syringe ONE (07:11)
[2018-07-17] MEDS ORDERED: Propofol 200 MG/20 ML SDV ONE (07:11)
[2018-07-17] MEDS ORDERED: Ondansetron 4 MG/2 ML SDV ONE (07:11)
[2018-07-17] MEDS ORDERED: Rocuronium 100 MG/10 ML Syringe ONE (07:11)
[2018-07-17] MEDS ORDERED: Lidocaine 2% 5 ML SDV ONE (07:11)
[2018-07-17] MEDS ORDERED: Lactated Ringers 1,000 ML IV SCH ×2 (08:15→13:45)
[2018-07-17] MEDS ORDERED: Fluorescein 5 ML Vial ONE (08:18)
[2018-07-17] MEDS ORDERED: Octyl 2-Cyanoacrylate 1 Tube ONE (08:18)
[2018-07-17] MEDS ORDERED: Scopolamine 1.5 MG Transdermal Patch TRDERM PRN (08:21)
--- NOTE | 2018-07-17 08:21 | PCM.PREANE ---
Preanesthetic Assessment - Anesthesia/Transfusion/Family Hx Anesthesia History: Prior Anesthesia Without Reaction Family History of Anesthesia Reaction: No Transfusion History: Prior Transfusion Without Reaction Intubation History: Unknown - Review of Systems General: No Symptoms Pulmonary: No Symptoms Cardiovascular: No Symptoms Gastrointestinal: No Symptoms Neurological: No Symptoms Other: Reports: None - Physical Assessment NPO Status Date: 07/16/18 NPO Status Time: 11:59 O2 Sat by Pulse Oximetry: 100 Respiratory Rate: 16 Vital Signs: Last Vital Signs Temp 36.1 C 07/17/18 07:45 Pulse 79 07/17/18 07:45 Resp 16 07/17/18 07:45 BP 101/69 07/17/18 07:45 Pulse Ox 100 07/17/18 07:45 Height: 1.57 m Weight: 60.328 kg ASA Class: 2 Mental Status: Alert & Oriented x3 Airway Class: Mallampati = 2 Dentition: Reports: Normal Dentition Thyro-Mental Finger Breadths: 3 Mouth Opening Finger Breadths: 3 ROM/Head Extension: Full Lungs: Clear to Auscultation, Normal Respiratory Effort Cardiovascular: Regular Rate, Regular Rhythm - Lab Values: Laboratory Last Values WBC 8.32 K/uL (4.0-11.0) 07/17/18 07:53 RBC 4.70 M/uL (4.30-5.90) 07/17/18 07:53 Hgb 13.5 g/dL (12.0-16.0) 07/17/18 07:53 Hct 44.5 % (36.0-46.0) 07/17/18 07:53 MCV 94.7 fL (80.0-98.0) 07/17/18 07:53 MCH 28.7 pg (27.0-32.0) 07/17/18 07:53 MCHC 30.3 g/dL (31.0-37.0) L 07/17/18 07:53 RDW Std Deviation 46.8 fl (28.0-62.0) 07/17/18 07:53 RDW Coeff of Ivan 13 % (11.0-15.0) 07/17/18 07:53 Plt Count 192 K/uL (150-400) 07/17/18 07:53 MPV 11.60 fL (7.40-12.00) 07/17/18 07:53 Nucleated RBC % 0.0 /100WBC 07/17/18 07:53 Nucleated RBCs # 0 K/uL 07/17/18 07:53 Urine HCG, Qual NEGATIVE (NEGATIVE) 07/17/18 07:35 - Allergies Allergies/Adverse Reactions: Allergies Allergy/AdvReac Type Severity Reaction Status Date / Time No Known Allergies Allergy Verified 07/16/18 08:56 - Blood Blood Available: No - Anesthesia Plan Pre-Op Medication Ordered: None - Acknowledgements Anesthesia Type Planned: General Anesthesia Pt an Appropriate Candidate for the Planned Anesthesia: Yes Alternatives and Risks of Anesthesia Discussed w Pt/Guardian: Yes Pt/Guardian Understands and Agrees with Anesthesia Plan: Yes PreAnesthesia Questionnaire - Past Health History Medical/Surgical History: Denies Medical/Surgical History HEENT History: Reports: None Cardiovascular History: Reports: None Respiratory History: Reports: None Gastrointestinal History: Reports: None Genitourinary History: Reports: None PROGRAMMER History: Reports: Dysfunctional Uterine Bleeding, Fibroids, Musculoskeletal History: Reports: None Neurological History: Reports: None Psychiatric History: Reports: None Endocrine/Metabolic History: Reports: None Hematologic History: Reports: Anemia, Blood Transfusion(s) Immunologic History: Reports: None Oncologic (Cancer) History: Reports: None Dermatologic History: Reports: None - Infectious Disease History Infectious Disease History: Reports: None - Past Surgical History Head Surgeries/Procedures: Reports: None HEENT Surgical History: Reports: None Cardiovascular Surgical History: Reports: None Respiratory Surgical History: Reports: None GI Surgical History: Reports: None Female Surgical History: Reports: Section Endocrine Surgical History: Reports: None Neurological Surgical History: Reports: None Musculoskeletal Surgical History: Reports: None Oncologic Surgical History: Reports: None Dermatological Surgical History: Reports: None - SUBSTANCE USE Smoking Status *Q: Current Every Day Smoker (< 1ppd) Tobacco Use Within Last Twelve Months: Cigarettes Recreational Drug Use History: No - HOME MEDS Home Medications: Home Meds . [No Known Home Meds] 07/16/18 [History] - CURRENT (IN HOUSE) MEDS Current Meds: Current Medications Lactated Ringer's (Ringers, Lactated) 1,000 mls @ 100 mls/hr IV ASDIRECTED SUSIE Discontinued Medications Fentanyl (Sublimaze) Confirm Administered Dose 250 mcg .ROUTE .STK-MED ONE Stop: 07/17/18 07:12 Glycopyrrolate (Robinul) Confirm Administered Dose 0.4 mg .ROUTE .STK-MED ONE Stop: 07/17/18 07:12 Lidocaine (Xylocaine-Mpf 2%) Confirm Administered Dose 5 ml .ROUTE .STK-MED ONE Stop: 07/17/18 07:12 Midazolam HCl (Versed 1 Mg/Ml) Confirm Administered Dose 2 mg .ROUTE .STK-MED ONE Stop: 07/17/18 07:12 Neostigmine Methylsulfate (Neostigmine) Confirm Administered Dose 5 mg .ROUTE .STK-MED ONE Stop: 07/17/18 07:12 Ondansetron HCl (Zofran) Confirm Administered Dose 4 mg .ROUTE .STK-MED ONE Stop: 07/17/18 07:12 Propofol (Diprivan 20 Ml) Confirm Administered Dose 200 mg .ROUTE .STK-MED ONE Stop: 07/17/18 07:12 Rocuronium [place] (Zemuron) Confirm Administered Dose 100 mg .ROUTE .STK-MED ONE Stop: 07/17/18 07:12
[2018-07-17] MEDS ORDERED: ceFAZolin 1 GM Vial ONE (09:15)
[2018-07-17] MEDS ORDERED: Sodium Chloride 0.9% 20 ML ONE (09:15)
[2018-07-17] MEDS ORDERED: ePHEDrine 50 MG/ML SDV ONE (09:26)
[2018-07-17] MEDS ORDERED: fentaNYL 100 MCG/2 ML SDV ONE (09:41)
[2018-07-17] MEDS ORDERED: Labetalol 100 MG/20 ML MDV ONE (09:45)
[2018-07-17] MEDS ORDERED: Furosemide 40 MG/4 ML VIAL ONE (09:55)
[2018-07-17] MEDS ORDERED: HYDROmorphone 2 MG/ML Syringe ONE (10:19)
[2018-07-17] MEDS ORDERED: Atropine 0.1 MG/ML 10 ML Syringe IVPUSH PRN ×2 (10:40)
[2018-07-17] MEDS ORDERED: fentaNYL 100 MCG/2 ML SDV IVPUSH PRN (10:40)
[2018-07-17] MEDS ORDERED: Albuterol 0.083% 2.5 MG/3 ML Neb Soln NEB PRN (10:40)
[2018-07-17] MEDS ORDERED: EPINEPHrine 1:10,000 1 MG/10 ML Syringe IVPUSH PRN (10:40)
[2018-07-17] MEDS ORDERED: Naloxone 0.4 MG/ML Syringe IVPUSH PRN (10:40)
[2018-07-17] MEDS ORDERED: 50% Dextrose in Water 50 ML Syringe IVPUSH PRN (10:40)
[2018-07-17] MEDS ORDERED: Ketorolac 30 MG/ML SDV IVPUSH ONE (10:45)
[2018-07-17] MEDS ORDERED: Acetaminophen/oxyCODONE 325-5 MG Tab PO PRN (10:45)
[2018-07-17] MEDS ORDERED: Morphine 4 MG/ML Syringe IVPUSH PRN (10:45)
[2018-07-17] MEDS ORDERED: Ketorolac 30 MG/ML SDV IVPUSH PRN (10:45)
[2018-07-17] MEDS ORDERED: Promethazine 25 MG/ML SDV IM PRN (10:45)
[2018-07-17] MEDS ORDERED: Ondansetron 4 MG/2 ML SDV IVPUSH PRN (10:45)
--- NOTE | 2018-07-17 10:50 | PCM.OPNOTE ---
- General Post-Op/Procedure Note Date of Surgery/Procedure: 07/17/18 Operative Procedure(s): TLH, bilateral salpengectomy. Pre Op Diagnosis: Fibroid uterus bleeding. Post-Op Diagnosis: Same Anesthesia Technique: General ET Tube Primary Surgeon: Jhonny Oneill EBL in mLs: 100 Complications: None Condition: Good
--- NOTE | 2018-07-17 17:07 | OR ---
SURGEON: Jhonny Oneill MD DATE OF PROCEDURE: 07/17/2018 PREOPERATIVE DIAGNOSIS: Menometrorrhagia, fibroid uterus of about 15 to 16 weeks size. POSTOPERATIVE DIAGNOSIS: Menometrorrhagia, fibroid uterus of about 15 to 16 weeks size. OPERATIONS PERFORMED: Total laparoscopic hysterectomy, bilateral laparoscopic salpingectomy preserving both ovaries, and cystoscopy. PRIMARY SURGEON: Jhonny Oneill MD. JOB FOREMAN: OR tech. ANESTHESIA: General endotracheal intubation, Mr. Alan Montague and Dr. Gates. ESTIMATED BLOOD LOSS: 100 mL. COMPLICATIONS: None. FINDING: Multiple fibroid uterus of about 15 to 16 weeks size. INDICATION FOR SURGERY: [place] is referred to the admit note. PROCEDURE IN DETAIL: The patient was brought to the OR properly identified, and after adequate level of anesthesia, the patient was placed in lithotomy position with an access in the abdomen and the vagina, and examination under anesthesia was performed and it was deemed that the surgery could be done safely laparoscopically, so we proceeded with this route, and a Lucas catheter placed in the bladder and the manipulator placed in the uterus for manipulation. The operation shifted abdominally. Stab wound was done beneath the umbilicus. The Veress needle was placed in peritoneal cavity and that cavity insufflated with 3,5 L carbon dioxide, and then utilizing the Visiport technique, a 5 mm trocar infraumbilical under direct vision without any problem. The patient was placed in steep Trendelenburg and 10 to 12 trocar placed in the left iliac fossa and 5 mm trocar in the right iliac fossa. The operation was started by identifying the landmark of the pelvis and the anatomy, and retracting the intestine away from the operative field. Then, the superior pedicle coagulated, transected using the Swapnil Harmonic scapula. The tubes included with the specimen, the ovary on both sides preserved. Round ligament coagulated and transected in the same manner, and then, the anterior leaf of the broad ligament dissected downward medially pushing the bladder completely away from the operative field, and the surgeon could easily palpate with the Harmonic scapula the rings in the vagina. The uterine vessel coagulated and transected on both sides using the Swapnil Harmonic scapula, and then, circular incision in the vaginal mucosa around the tip of the vaginal retractor detaching the cervix from its attachment to the uterus. Then, the operation shifted abdominally and the uterus morselized. I did a morcellation of the uterus vaginally and the uterus was removed. Once that was removed, the pneumoperitoneum re-established by placing vaginal pack in the vagina and thorough irrigation of the operative field shows no oozing, no bleeding. We proceeded to close the vaginal cuff laparoscopically using 2-0 PDS interrupted sutures. While we were doing that, we asked Anesthesia personnel to give the patient fluorescein and cystoscopy was performed. The bladder was intact. Both ureteric orifices seen with the dye coming from both of them. Thus, the patency of both ureters verified. Satisfied with these findings, and the instrument and hardware were retrieved from the abdomen and the vagina and the multiple laparoscopic incisions closed in layers, and the procedure ended. Instrument and sponge counts were correct. The patient tolerated the procedure well, went to recovery room in stable general condition. JABARI VILLAR /[id number]
[2018-07-17] MEDS: Acetaminophen/oxyCODONE 325-5 MG Tab PO PRN (19:40)
[2018-07-18 05:49] LABS: CHLORIDE,CL 108 mmol/L (98-107); SODIUM,NA 141 mmol/L (136-145)
[2018-07-18] MEDS: Acetaminophen/oxyCODONE 325-5 MG Tab PO PRN (06:30)
--- NOTE | 2018-07-18 08:53 | PCM.SURGPN ---
- General Info Date of Service: 07/18/18 POD#: 1 Functional Status: Reports: Pain Controlled - Review of Systems General: Reports: No Symptoms HEENT: Reports: No Symptoms Pulmonary: Reports: No Symptoms Cardiovascular: Reports: No Symptoms Gastrointestinal: Reports: No Symptoms Genitourinary: Reports: No Symptoms Musculoskeletal: Reports: No Symptoms Skin: Reports: No Symptoms Neurological: Reports: No Symptoms Psychiatric: Reports: No Symptoms - Patient Data Vitals - Most Recent: Last Vital Signs Temp 36.1 C 07/18/18 07:30 Pulse 90 07/18/18 07:30 Resp 16 07/18/18 07:30 BP 109/62 07/18/18 07:30 Pulse Ox 96 07/18/18 07:30 Weight - Most Recent: 60.328 kg I&O - Last 24 Hours: Intake & Output 07/17/18 07/18/18 07/18/18 22:59 06:59 14:59 Intake Total 706 500 Output Total 600 750 Balance 106 -250 Lab Results Last 24 Hrs: Laboratory Results - last 24 hr 07/17/18 07/18/18 07/18/18 Range/Units 07:53 04:45 04:45 WBC 8.36 (4.0-11.0) K/uL RBC 3.79 L (4.30-5.90) M/uL Hgb 11.2 L (12.0-16.0) g/dL Hct 36.2 (36.0-46.0) % MCV 95.5 (80.0-98.0) fL MCH 29.6 (27.0-32.0) pg MCHC 30.9 L (31.0-37.0) g/dL RDW Std Deviation 47.8 (28.0-62.0) fl RDW Coeff of Ivan 14 (11.0-15.0) % Plt Count 150 (150-400) K/uL MPV 12.10 H (7.40-12.00) fL Neut % (Auto) 75.5 (48.0-80.0) % Lymph % (Auto) 16.4 (16.0-40.0) % [place] % (Auto) 5.6 (0.0-15.0) % Eos % (Auto) 2.4 (0.0-7.0) % Baso % (Auto) 0.1 (0.0-1.5) % Neut # (Auto) 6.3 H (1.4-5.7) K/uL Lymph # (Auto) 1.4 (0.6-2.4) K/uL [place] # (Auto) 0.5 (0.0-0.8) K/uL Eos # (Auto) 0.2 (0.0-0.7) K/uL Baso # (Auto) 0.0 (0.0-0.1) K/uL Nucleated RBC % 0.0 /100WBC Nucleated RBCs # 0 K/uL Sodium 141 (136-145) mmol/L Potassium 3.9 (3.5-5.1) mmol/L Chloride 108 H (98-107) mmol/L Carbon Dioxide 27.5 (21.0-32.0) mmol/L BUN 6 L (7.0-18.0) mg/dL Creatinine 0.7 (0.6-1.0) mg/dL Est Cr Clr Drug Dosing 84.49 mL/min Estimated GFR (MDRD) > 60.0 ml/min Glucose 114 H (74-106) mg/dL Calcium 9.5 (8.5-10.1) mg/dL Blood Type O POSITIVE Antibody Screen NEGATIVE Med Orders - Current: Current Medications Lactated Ringer's (Ringers, Lactated) 1,000 mls @ 100 mls/hr IV ASDIRECTED SUSIE Ketorolac Tromethamine (Toradol) 30 mg IVPUSH Q6H PRN PRN Reason: Pain (severe 7-10) Stop: 07/22/18 10:45 Last Admin: 07/17/18 13:36 Dose: 30 mg Morphine Sulfate (Morphine) 4 mg IVPUSH Q2H PRN PRN Reason: Pain (severe 7-10) Ondansetron HCl (Zofran) 4 mg IVPUSH Q6H PRN PRN Reason: Nausea/Vomiting Oxycodone/Acetaminophen (Percocet 325-5 Mg) 1 tab PO Q4H PRN PRN Reason: Pain (moderate 4-6) Oxycodone/Acetaminophen (Percocet 325-5 Mg) 2 tab PO Q4H PRN PRN Reason: Pain (moderate 4-6) Last Admin: 07/18/18 06:30 Dose: 2 tab Promethazine HCl (Phenergan) 25 mg IM Q6H PRN PRN Reason: Nausea/Vomiting Scopolamine (Transderm-Scop) 1.5 mg TRDERM Q72H PRN PRN Reason: Nausea Last Admin: 07/17/18 08:27 Dose: 1.5 mg Discontinued Medications Albuterol (Proventil Neb Soln) 2.5 mg NEB ONETIME PRN PRN Reason: Wheezing Atropine Sulfate (Atropine 0.1 Mg/Ml) 0.5 mg IVPUSH ASDIRECTED PRN PRN Reason: Hypo-perfusion Atropine Sulfate (Atropine 0.1 Mg/Ml) 1 mg IVPUSH ASDIRECTED PRN PRN Reason: Hypo-Perfusion Cefazolin Sodium (Ancef) Confirm Administered Dose 2 gm .ROUTE .STK-MED ONE Stop: 07/17/18 09:16 Dextrose/Water (Dextrose 50% In Water) 50 ml IVPUSH ASDIRECTED PRN PRN Reason: Hypoglycemia Ephedrine Sulfate (Ephedrine Sulfate) Confirm Administered Dose 50 mg .ROUTE .STK-MED ONE Stop: 07/17/18 09:27 Epinephrine HCl (Epinephrine 1:10,000) 1 mg IVPUSH ASDIRECTED PRN PRN Reason: ACLS Guidelines Fentanyl (Sublimaze) Confirm Administered Dose 250 mcg .ROUTE .STK-MED ONE Stop: 07/17/18 07:12 Fentanyl (Sublimaze) Confirm Administered Dose 100 mcg .ROUTE .STK-MED ONE Stop: 07/17/18 09:42 Fentanyl (Sublimaze) 50 - 100 mcg IVPUSH Q5M PRN PRN Reason: Pain Fluorescein Sodium ([place]-Fluor) Confirm Administered Dose 5 ml .ROUTE .STK-MED ONE Stop: 07/17/18 08:19 Furosemide (Lasix) Confirm Administered Dose 40 mg .ROUTE .STK-MED ONE Stop: 07/17/18 09:56 Glycopyrrolate (Robinul) Confirm Administered Dose 0.4 mg .ROUTE .STK-MED ONE Stop: 07/17/18 07:12 Hydromorphone HCl (Dilaudid) Confirm Administered Dose 2 mg .ROUTE .STK-MED ONE Stop: 07/17/18 10:20 Lactated Ringer's (Ringers, Lactated) 1,000 mls @ 100 mls/hr IV ASDIRECTED [facility] Last Admin: 07/17/18 07:50 Dose: 100 mls/hr Sodium Chloride (Normal Saline) Confirm Administered Dose 20 mls @ as directed .ROUTE .STK-MED ONE Stop: 07/17/18 09:16 Ketorolac Tromethamine (Toradol) 30 mg IVPUSH ONETIME ONE Stop: 07/17/18 10:46 Last Admin: 07/17/18 13:36 Dose: Not Given Labetalol HCl (Normodyne) Confirm Administered Dose 100 mg .ROUTE .STK-MED ONE Stop: 07/17/18 09:46 Lidocaine (Xylocaine-Mpf 2%) Confirm Administered Dose 5 ml .ROUTE .STK-MED ONE Stop: 07/17/18 07:12 Midazolam HCl (Versed 1 Mg/Ml) Confirm Administered Dose 2 mg .ROUTE .STK-MED ONE Stop: 07/17/18 07:12 Naloxone HCl (Narcan) 0.1 mg IVPUSH ASDIRECTED PRN PRN Reason: Respiratory Depression Neostigmine Methylsulfate (Neostigmine) Confirm Administered Dose 5 mg .ROUTE .STK-MED ONE Stop: 07/17/18 07:12 Octyl Cyanoacrylate (Dermabond Advance) Confirm Administered Dose 1 applic .ROUTE .STK-MED ONE Stop: 07/17/18 08:19 Ondansetron HCl (Zofran) Confirm Administered Dose 4 mg .ROUTE .STK-MED ONE Stop: 07/17/18 07:12 Propofol (Diprivan 20 Ml) Confirm Administered Dose 200 mg .ROUTE .STK-MED ONE Stop: 07/17/18 07:12 Rocuronium [place] (Zemuron) Confirm Administered Dose 100 mg .ROUTE .STK-MED ONE Stop: 07/17/18 07:12 - Exam Wound/Incisions: Healing Well General: Alert, Oriented HEENT: Pupils Equal Neck: Supple Lungs: Clear to Auscultation, Normal Respiratory Effort Cardiovascular: Regular Rate, Regular Rhythm GI/Abdominal Exam: Normal Bowel Sounds, Soft, Non-Tender, No Organomegaly, No Distention, No Abnormal Bruit, No Mass, Pelvis Stable Extremities: Normal Inspection, Normal Range of Motion, Non-Tender, No Pedal Edema, Normal Capillary Refill Skin: Warm, Dry, Intact Neurological: No New Focal Deficit Psy/Mental Status: Alert, Normal Affect, Normal Mood - Problem List Review Problem List Initiated/Reviewed/Updated: Yes - My Orders Last 24 Hours: Active Orders 24 hr Category Date Time Status Patient Status [ADT] Routine ADT 07/17/18 10:45 Active Antiembolic Devices [RC] PER UNIT ROUTINE Care 07/17/18 10:46 Active Notify Provider Vital Signs [RC] ASDIRECTED Care 07/17/18 10:40 Active Notify Provider Vital Signs [RC] ASDIRECTED Care 07/17/18 10:45 Active Oxygen Therapy [RC] ASDIRECTED Care 07/17/18 10:45 Active RT Incentive Spirometry [RC] Q2HWA Care 07/17/18 10:45 Active Up With Assistance [RC] PER UNIT ROUTINE Care 07/17/18 10:45 Active Up ad Mamta [RC] PER UNIT ROUTINE Care 07/17/18 10:45 Active Vital Signs [RC] Q4H Care 07/17/18 10:45 Active Regular Diet [DIET] Diet 07/17/18 Dinner Active Acetaminophen/oxyCODONE [Percocet 325-5 MG] Med 07/17/18 10:45 Active 1 tab PO Q4H PRN Acetaminophen/oxyCODONE [Percocet 325-5 MG] Med 07/17/18 10:45 Active 2 tab PO Q4H PRN Ketorolac [Toradol] Med 07/17/18 10:45 Active 30 mg IVPUSH Q6H PRN Lactated Ringers [Ringers, Lactated] 1,000 ml Med 07/17/18 13:45 Active IV ASDIRECTED Morphine Med 07/17/18 10:45 Active 4 mg IVPUSH Q2H PRN Ondansetron [Zofran] Med 07/17/18 10:45 Active 4 mg IVPUSH Q6H PRN Promethazine [Phenergan] Med 07/17/18 10:45 Active 25 mg IM Q6H PRN Scopolamine [Transderm-Scop] Med 07/17/18 08:21 Active 1.5 mg TRDERM Q72H PRN Peripheral IV Discontinue [OM.PC] Routine Oth 07/17/18 10:45 Ordered Sequential Compression Device [OM.PC] Per Unit Routine Oth 07/17/18 10:45 Ordered Resuscitation Status Routine Resus Stat 07/17/18 10:45 Ordered Medication Orders Lactated Ringer's (Ringers, Lactated) 1,000 mls @ 100 mls/hr IV ASDIRECTED SUSIE Ketorolac Tromethamine (Toradol) 30 mg IVPUSH Q6H PRN PRN Reason: Pain (severe 7-10) Stop: 07/22/18 10:45 Last Admin: 07/17/18 13:36 Dose: 30 mg Morphine Sulfate (Morphine) 4 mg IVPUSH Q2H PRN PRN Reason: Pain (severe 7-10) Ondansetron HCl (Zofran) 4 mg IVPUSH Q6H PRN PRN Reason: Nausea/Vomiting Oxycodone/Acetaminophen (Percocet 325-5 Mg) 1 tab PO Q4H PRN PRN Reason: Pain (moderate 4-6) Oxycodone/Acetaminophen (Percocet 325-5 Mg) 2 tab PO Q4H PRN PRN Reason: Pain (moderate 4-6) Last Admin: 07/18/18 06:30 Dose: 2 tab Admin: 07/17/18 19:40 Dose: 2 tab Promethazine HCl (Phenergan) 25 mg IM Q6H PRN PRN Reason: Nausea/Vomiting Scopolamine (Transderm-Scop) 1.5 mg TRDERM Q72H PRN PRN Reason: Nausea Last Admin: 07/17/18 08:27 Dose: 1.5 mg - Assessment Assessment (Free Text/Narrative):: Status post total laparoscopic hysterectomy postoperative day #1 the patient is doing well she have no problem no bleeding she is ambulatory issues regarding passing gas is on regular diet and no vaginal bleeding - Plan Plan (Free Text/Narrative):: Patient will be discharged today with the postvasectomy instruction she was given prescription for Narco 5 to use for post operative pain and she have an appointment to see me in the office in one week
== END 2018-07-18 09:20 | disposition home or self-care (01) ==
LOC: MW.SDS 06:59 → MW.MS 12:57 → MW.SDS 07-18 09:20
PROVIDERS: ATTEND Obstetrics & Gynecology
DX: D25.9 Leiomyoma of uterus, unspecified (principal); D64.9 Anemia, unspecified; F17.210 Nicotine dependence, cigarettes, uncomplicated
CPT/HCPCS: 36415; 58573; 80048; 81025; 85025; 85027; 86850; 86900; 86901; A9270; J0690; J1170; J1885; J1940; J2001; J2250; J2405; J2704; J3010; J3490; J7120; 00840